=== PATIENT | female | born 1985 | race Two or more races ===

== ENCOUNTER 2018-06-29 08:38 | Emergency (ER) | payer OTHER ==
[2018-06-29 08:54] VITALS: BP 132/86; PULSE 70; TEMP 98.1; BMI 25.1
[2018-06-29] MEDS ORDERED: IBUPROFEN 600 MG TABLET (FP) PO ONE ×2 (09:26→09:34)
--- NOTE | 2018-06-29 09:29 | PDOC ---
History of Present Illness - General Chief Complaint: Sore Throat Stated Complaint: CAN'T SPEAK/PAIN IN THROAT Time Seen by Provider: 06/29/18 09:09 History Source: Patient Exam Limitations: No Limitations - History of Present Illness Initial Comments: 06/29/18 09:27 32 yr female no past medical history or allergies with 2 days sore throat , hoarse voice. no fever no abd pain. Past History - Past Medical History Allergies/Adverse Reactions: Allergies Allergy/AdvReac Type Severity Reaction Status Date / Time No Known Allergies Allergy Verified 06/29/18 09:22 Home Medications: Ambulatory Orders Benzocaine/Menthol [Cepacol Sore Throat Lozenge] 1 each MM QID PRN #20 lozenge 06/29/18 COPD: No - Suicide/Smoking/Psychosocial Hx Smoking History: Current some day smoker Information on smoking cessation initiated: No *Physical Exam - Vital Signs Last Vital Signs Temp Pulse Resp BP Pulse Ox 98.1 F 70 18 132/86 99 06/29/18 08:50 06/29/18 08:50 06/29/18 08:50 06/29/18 08:50 06/29/18 08:50 - Physical Exam General Appearance: Yes: Nourished, Appropriately Dressed HEENT: positive: EOMI, REINALDO, TMs Normal, Pharynx Normal. negative: Pharyngeal Erythema, Tonsillar Exudate, Tonsillar Erythema Neck: positive: Supple. negative: Lymphadenopathy (R), Lymphadenopathy (L) Respiratory/Chest: positive: Lungs Clear, Normal Breath Sounds. negative: Chest Tender Cardiovascular: positive: Regular Rhythm, Regular Rate Gastrointestinal/Abdominal: positive: Normal Bowel Sounds, Soft Lymphatic: negative: Adenopathy Musculoskeletal: positive: Normal Inspection Extremity: positive: Normal Capillary Refill, Normal Inspection, Normal Range of Motion. negative: Tender Integumentary: positive: Normal Color, Dry, Warm Neurologic: positive: Fully Oriented, Alert, Normal Mood/Affect, Normal Response , Motor Strength 5/5 *DC/Admit/Observation/Transfer Diagnosis at time of Disposition: Acute viral pharyngitis - Discharge Dispostion Disposition: HOME Condition at time of disposition: Good - Prescriptions Prescriptions: Benzocaine/Menthol [Cepacol Sore Throat Lozenge] 1 each MM QID PRN #20 lozenge PRN Reason: Oral Pain/Mouth Sores - Referrals Referrals: Ann Hernandez NP [Primary Care Provider] - - Patient Instructions Additional Instructions: gargle with warm salt water 4-5 times a day take ibuprofen every 8hrs for pain use cepacol lozengers as directed for sore throat. follow with your doctor for follow up - Post Discharge Activity
== END 2018-06-29 10:14 | disposition home or self-care (01) ==
LOC: JERFT 08:38
DX: J02.9 Acute pharyngitis, unspecified (principal); B97.89 Other viral agents as the cause of diseases classified elsewhere
CPT/HCPCS: 87070; 87430; 99281-25

== ENCOUNTER 2019-07-24 14:10 | Emergency (ER) | payer OTHER ==
[2019-07-24 14:28] VITALS: BP 122/65; PULSE 69; TEMP 98.8; BMI 28.7
--- NOTE | 2019-07-24 14:55 | PDOC ---
History of Present Illness - General Chief Complaint: Pain Stated Complaint: L WRIST PAIN Time Seen by Provider: 07/24/19 14:41 History Source: Patient - History of Present Illness Occurred: reports: other Severity: reports: mild Upper Extremity Pain Location: right: wrist Method of Injury: reports: fell Past History - Past Medical History Allergies/Adverse Reactions: Allergies Allergy/AdvReac Type Severity Reaction Status Date / Time No Known Allergies Allergy Verified 07/24/19 14:27 Home Medications: Ambulatory Orders Benzocaine/Menthol [Cepacol Sore Throat Lozenge] 1 each MM QID PRN #20 lozenge 06/29/18 COPD: No - Psycho Social/Smoking Cessation Hx Smoking History: Never smoked Review of Systems - Review of Systems Musculoskeletal: Yes: Joint Pain. No: Joint Swelling Neurological: No: Numbness, Tingling *Physical Exam - Vital Signs Last Vital Signs Temp Pulse Resp BP Pulse Ox 98.8 F 69 18 122/65 100 07/24/19 14:23 07/24/19 14:23 07/24/19 14:23 07/24/19 14:23 07/24/19 14:23 - Physical Exam General Appearance: Yes: Appropriately Dressed. No: Apparent Distress HEENT: positive: Normal Voice Neck: positive: Supple Respiratory/Chest: negative: Respiratory Distress Extremity: positive: Tender (to radial wrist, no swelling, no snuffbox ttp, FROMI, sensation intact) Integumentary: positive: Dry, Warm Neurologic: positive: Fully Oriented, Alert, Normal Mood/Affect ED Treatment Course - RADIOLOGY Radiology Studies Ordered: Category Date Time Status WRIST W/HAND-LEFT* [RAD] Stat Radiology 07/24/19 14:52 Ordered Medical Decision Making - Medical Decision Making 07/24/19 14:53 33-year-old female, denies any past medical history, here with left wrist pain after fall 2 days ago. States she use her left hand to break fall and since then has been having pain to radial aspect of left wrist. Has not taken anything for pain see exam Wrist sprain XR neg for fx No snuffbox ttp on exam Dc w/ OTC meds prn pain Discharge - Discharge Information Problems reviewed: Yes Clinical Impression/Diagnosis: Right wrist sprain Qualifiers: Encounter type: initial encounter Qualified Code(s): S63.501A - Unspecified sprain of right wrist, initial encounter Condition: Good Disposition: HOME - Follow up/Referral - Patient Discharge Instructions Patient Printed Discharge Instructions: DI for Wrist Sprain - Post Discharge Activity
== END 2019-07-24 15:10 | disposition home or self-care (01) ==
LOC: JERFT 14:10
DX: S63.502A Unspecified sprain of left wrist, initial encounter (principal); W18.39XA Other fall on same level, initial encounter; Y93.89 Activity, other specified; Y92.89 Other specified places as the place of occurrence of the external cause; Y99.8 Other external cause status
CPT/HCPCS: 73110-TC-LT-FY; 73130-TC-LT-FY; 99281-25